=== PATIENT | male | born 1965 | race Two or more races ===

== ENCOUNTER 2019-08-07 15:47 | Emergency (ER) | payer OTHER ==
[~2019-08-07] VITALS: Ht 177.8 cm; Wt 82.6 kg
[~2019-08-07 15:47] MED LIST: B COMPLEX1 EACH PO; CALCIUM600 MG PO; COMPLERA; FOSAMAX PLUS D1 EAC1 PO; ODEFSEY TABLET1 EACH PO; PNEU16DI2
== END 2019-08-07 18:54 | disposition home or self-care (01) ==
LOC: ER 15:47
DX: S01.82XA Laceration with foreign body of other part of head, initial encounter (principal); W18.09XA Striking against other object with subsequent fall, initial encounter; Y93.89 Activity, other specified; Y92.89 Other specified places as the place of occurrence of the external cause; Y99.8 Other external cause status